=== PATIENT | female | born 1985 | race Caucasian/White ===

== ENCOUNTER 2017-09-17 18:29 | Emergency (ER) | payer OTHER ==
[~2017-09-17] VITALS: Ht 149.9 cm; Wt 47.2 kg
[~2017-09-17 18:29] MED LIST: OBSTETRIX DHA1 EACH PO
== END 2017-09-18 00:30 | disposition home or self-care (01) ==
LOC: ER 18:29
DX: O20.0 Threatened abortion (principal); Z34.81 Encounter for supervision of other normal pregnancy, first trimester